=== PATIENT | male | born 1945 | race Caucasian/White ===

== ENCOUNTER 2016-06-25 17:30 | Emergency (ER) | payer MEDICARE ==
--- NOTE | 2016-07-01 15:06 | ER ---
ADMIT: 06/25/2016 RM/LOC: [facility] MR#: [id number] [address] [address] ROSARIO SANTAMARIA [address] [place] [address] Emergency Room Report SEX: M AGE: 70 : 1945 DATE: 06/25/2016 TIME: 1730 Please refer to my T-sheet for complete H and P. HISTORY OF PRESENT ILLNESS: Briefly, the patient is a 70-year-old who comes in with unsteady gait, shaky. He has a history of liver cirrhosis. He is on lactulose and has stayed steady on that, but he said he has had one round of severe hepatic encephalopathy and his caregiver states that this is kind of how he started. PHYSICAL EXAMINATION: VITAL SIGNS: Blood pressure 125/79, pulse 72, respirations 16, temp 97.7, saturating 100%. GENERAL: No acute distress. HEENT: Sclerae icteric. LUNGS: Clear. HEART: Regular. ABDOMEN: Soft. SKIN: No rash. EXTREMITIES: 2+ edema. EMERGENCY DEPARTMENT COURSE: CBC was normal except white count 3.8, hemoglobin 12.2, platelets 60. Chemistries normal except sodium 128, glucose 102, total bilirubin is 3.5. Ammonia 33. I gave him 500 mL bolus, lactulose 30 p.o., he was ready for discharge. I had a long discussion with him. ASSESSMENT: 1. Liver cirrhosis. 2. 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 Concerned that he could be going into encephalopathy again is the concern of the family. PLAN: I am going to bump his lactulose to 45 mL 3-4 times a day. He is on 30 mL q.i.d. [facility] Return if worse. Continue medications. Hernan Mera MD/ elsy JOB #: [id number] CC: Lamin Miller MD, Attending Physician Jeff Trevino MD, Family Physician
[2016-08-23] MEDS ORDERED: XIFAXAN550 MG PO (17:39)
[2016-08-23] MEDS ORDERED: SYNTHROID DPS0.05 MG PO (17:39)
[2016-08-23] MEDS ORDERED: ENULOSE10 GM/15 M PO (17:39)
[2016-08-23] MEDS ORDERED: LASIX DPS40 MG PO (17:40)
[2016-08-23] MEDS ORDERED: VITAMIN D31000 UNIT PO (17:40)
[2016-08-23] MEDS ORDERED: VITAMIN C500 M1 PO (17:40)
[2016-08-23] MEDS ORDERED: FLOMAX DPS0.4 MG PO (17:41)
[2016-08-23] MEDS ORDERED: VITAMIN A10000 UNI1 PO (17:41)
[2016-08-23] MEDS ORDERED: ALDACTONE100 MG PO (17:41)
[2016-08-23] MEDS ORDERED: PRILOSEC DPS20 MG PO (17:42)
[2016-08-29] MEDS ORDERED: XIFAXAN550 MG PO (16:27)
[2016-08-29] MEDS ORDERED: ENULOSE10 GM/15 M PO (16:27)
[2016-08-29] MEDS ORDERED: LASIX DPS40 MG PO (16:27)
[2016-08-29] MEDS ORDERED: SYNTHROID DPS0.05 MG PO (16:27)
[2016-08-29] MEDS ORDERED: ASCORBIC ACID500 MG PO (16:28)
[2016-08-29] MEDS ORDERED: ALDACTONE100 MG PO (16:28)
[2016-08-29] MEDS ORDERED: VITAMIN D31000 UNIT PO (16:28)
[2016-08-29] MEDS ORDERED: PRILOSEC DPS20 MG PO (16:29)
[2016-08-29] MEDS ORDERED: VITAMIN A10000 UNI1 PO (16:29)
[2016-08-29] MEDS ORDERED: FLOMAX DPS0.4 MG PO (16:29)
== END 2016-06-25 19:38 | disposition home or self-care (01) ==
LOC: ER 17:30
DX: K74.60 Unspecified cirrhosis of liver (principal); R25.1 Tremor, unspecified

== ENCOUNTER → 2016-08-15 | Outpatient (CLI) | payer MEDICARE, OTHER ==
[~2016-08-15] MED LIST: ALDACTONE100 MG PO; ASCORBIC ACID500 MG PO; ENULOSE10 GM/15 M PO; FLOMAX DPS0.4 MG PO; LASIX DPS40 MG PO; PRILOSEC DPS20 MG PO; SYNTHROID DPS0.05 MG PO; VITAMIN A10000 UNI1 PO; VITAMIN C500 M1 PO; VITAMIN D31000 UNIT PO; XIFAXAN550 MG PO
== END | disposition home or self-care (01) ==
DX: K72.10 Chronic hepatic failure without coma (principal)

== ENCOUNTER 2016-08-20 15:26 | Inpatient (IN) | payer MEDICARE, OTHER ==
[~2016-08-20] VITALS: Ht 175.3 cm; Wt 76.9 kg
--- NOTE | ~2016-08-20 | FD ---
ADMIT: 08/20/2016 RM/LOC: 402 [facility] MR#: [id number] [address] [address] ROSARIO [place] [address] Final Diagnosis SEX: M AGE: 71 : 1945 ADMISSION DATE: 08/20/2016 DISCHARGE DATE: 08/22/2016 DISCHARGE DIAGNOSES: 1. Hepatic encephalopathy, mild, resolved. 2. Alcohol end-stage/alcoholic liver disease/cirrhosis with known portal hypertension, ascites and known esophageal varices. 3. Chronic hyponatremia. 4. History of alcohol abuse, in remission. 5. Depression. 6. BPH (benign prostatic hypertrophy). 7. Hypothyroidism. Jeff Trevino MD/ vdg JOB #: [id number] CC: Jeff Trevino MD, Attending Physician Jeff Trevino MD, Family Physician
--- NOTE | ~2016-08-20 | ER ---
ADMIT: 08/20/2016 RM/LOC: 402 [facility] MR#: [id number] [address] [address] ROSARIO [place]ANT[place] [address] Emergency Room Report SEX: M AGE: 71 : 1945 DATE: 08/20/2016 ADDENDUM: This is a 71-year-old white male with end-stage cirrhosis coming in with confusion. He has obvious hepatic encephalopathy which he has had before. He is confused with this. He is not on the transplant list. He is only getting progressively worse. He lives by himself. His sister tries help to him, but she is not [id number], and he has no advanced directive at this time. His ammonia is 67. CBC shows a white count of 4, hemoglobin 12, bilirubin total is 3.2. His SGOT is 46, SGPT is 52. He does have ascites as well. At this time, I spoke with Dr. Trevino. He will admit. CONDITION ON DISCHARGE: Serious. Lamin Miller MD/ modl JOB #: [id number] CC: Jeff Trevino MD, Attending Physician Jeff Trevino MD, Family Physician
[2016-08-23] MEDS ORDERED: SYNTHROID DPS0.05 MG PO (17:39)
[2016-08-23] MEDS ORDERED: XIFAXAN550 MG PO (17:39)
[2016-08-23] MEDS ORDERED: ENULOSE10 GM/15 M PO (17:39)
[2016-08-23] MEDS ORDERED: VITAMIN C500 M1 PO (17:40)
[2016-08-23] MEDS ORDERED: VITAMIN D31000 UNIT PO (17:40)
[2016-08-23] MEDS ORDERED: LASIX DPS40 MG PO (17:40)
[2016-08-23] MEDS ORDERED: FLOMAX DPS0.4 MG PO (17:41)
[2016-08-23] MEDS ORDERED: VITAMIN A10000 UNI1 PO (17:41)
[2016-08-23] MEDS ORDERED: ALDACTONE100 MG PO (17:41)
[2016-08-23] MEDS ORDERED: PRILOSEC DPS20 MG PO (17:42)
--- NOTE | 2016-08-26 12:33 | HP ---
ADMIT: 08/20/2016 RM/LOC: 402 [facility] MR#: [id number] [address] [address] ROSALIO ROSARIO Eugenia [place] [address] History and Physical SEX: M AGE: 71 : 1945 DATE OF SERVICE: HISTORY OF PRESENT ILLNESS: The patient is a very pleasant, 71-year-old gentleman with past medical history of end-stage liver disease secondary to alcoholism with cirrhosis, portal hypertension, ascites, known varices, presents to [facility] emergency room today with his sister who brings him in just saying he has been a little bit more confused the last 24-48 hours, balance has been off, did not know his day this morning. Has been hospitalized last April 2016 for an episode of hepatic encephalopathy. At that point, he had not been taking his lactulose correctly. He was started on rifaximin and done pretty well until recently. Sister admits he has not even been taking it three times per day and bowels have only been moving once per day. The patient, in talking with him, is awake, a little alert, but confused at times. He denies fevers, chills, or any abdominal pain. Denies cough. Denies any bladder complaints. No pain. He has been a little out of balance, had a fall a couple of weeks ago with really no injuries in the emergency room. As mentioned, he was noted to be confused and he is admitted for further evaluation and treatment. PAST MEDICAL HISTORY: Includes: 1. Cirrhosis of the liver secondary to alcoholic liver disease with known esophageal varices, portal hypertension, ascites, prior history of hepatic encephalopathy with admissions in [place] in April 2016. 2. History of alcohol abuse, in remission. 3. Hypothyroidism. 4. History of colon polyps. 5. Status post root canal. 6. Depression. 7. Presbycusis. 8. BPH. HOME MEDICATIONS: Include: 1. Lactulose. 2. Rifaximin. 3. Synthroid. 4. Lasix. 5. Aldactone. 6. Tamsulosin. 7. Vitamin D. 8. Vitamin C. 9. Vitamin A. 10.Omeprazole. ALLERGIES: NO KNOWN MEDICAL ALLERGIES. SOCIAL HISTORY: He is not . Prior heavy drinker. He has never been a smoker. He has been living by himself with just some assistance from his sister. ADMIT: 08/20/2016 RM/LOC: 402 [facility] MR#: [id number] [address] [address] ROSARIO SANTAMARIA [address] [place] [id number] History and Physical SEX: M AGE: 71 : 1945 FAMILY HISTORY: Mother with heart disease, heart failure, and heart block. Father with a type of sarcoma and AFib. REVIEW OF SYSTEMS: As noted above. All systems reviewed and negative. PHYSICAL EXAMINATION: VITAL SIGNS: 97.2, 76, 14, 115/78, 100% on room air. GENERAL: This is a gentleman, appears older than his stated age. He is in no apparent distress. He is awake, confused at times. He is oriented to person and place. He is not able to tell me the year or the date. HEENT: Normocephalic and atraumatic. Mucous membranes are little dry. NECK: Supple. He does have some mild scleral icterus. HEART: Regular. LUNGS: Clear. ABDOMEN: Slight fluid wave is noted, not obviously distended. Positive bowel sounds are noted throughout. He does not have any rebound or guarding noted. EXTREMITIES: He has trace to 1+ edema, feet, ankle, calves. NEUROLOGICAL: He does have a little bit of asterixis noted. Otherwise, I do not cook pickled meat any other focal deficits. He has good weights and measures inspector strengths bilaterally. His gait was observed with him walking the bathroom and he was unsteady with kind of a broad-based gait. LABORATORY DATA: Lab work shows hemoglobin 12.1, white count is 4, 54,000 platelets. Sodium 130, potassium 4.5, BUN is 16 with a creatinine of 1.2. His AST 46, ALT 52, alkaline phosphatase 121, total bilirubin 3.2. Urinalysis is pending. Ammonia was 67. ASSESSMENT AND PLAN: 1. Encephalopathy, likely recurrence of his hepatic encephalopathy due to medication noncompliance. 2. End-stage liver disease secondary to alcohol abuse with known history of portal hypertension/ascites with no known esophageal varices. 3. Chronic thrombocytopenia. 4. Chronic hyponatremia. 5. Hypothyroidism. At this time, I am going to check a urine on him. I do not see any other obvious infectious symptoms going on. I do not see any other evidence of ADMIT: 08/20/2016 RM/LOC: 402 [facility] MR#: [id number] [address] [place] [phone] ROSARIO SANTAMARIA [address] [place] [address] History and Physical SEX: M AGE: 71 : 1945 decompensation right now besides his ascites and hepatic encephalopathy. We are going to schedule lactulose at least five times per day. PT/OT and Social Work to see them. We will follow up lab and urine on him tomorrow. His hyponatremia is overall stable. We will continue with the Lasix and the Aldactone. Place him on a 2 g sodium diet with 2 L of fluid restriction. We will plan on daily weights. At this point, I just do not think he is safe at home. This is his second hospitalization just since April just because he has not been taking his medications correctly. He still remains sober and did actually have a screening alcohol screen done last week, so I do not think that is behind anything right now. No obvious illicit drugs are noted, but we will get Social Work involved as I do think he will probably need placement. We will follow him closely here as inpatient. Jeff Trevino MD/ elsy JOB #: [id number] CC: Jeff Trevino, Attending Physician Jeff Trevino, Family Physician
--- NOTE | 2016-08-27 10:35 | ER ---
ADMIT: 08/20/2016 RM/LOC: 402 [facility] MR#: [id number] 26[address] [facility] [address] ROSARIO SANTAM[place] [address] Emergency Room Report SEX: M AGE: 71 : 1945 DATE: 08/20/2016 Sister finally felt that she could not take care of him at home, so we are going back to being admitted by Dr. Trevino. Lamin Miller MD/ elsy JOB #: [id number] CC: Jeff Trevino MD, Attending Physician Jeff Trevino MD, Family Physician
--- NOTE | 2016-08-27 10:35 | ER ---
ADMIT: 08/20/2016 RM/LOC: 402 [facility] MR#: [id number] [address] [address] ROSARIO [place] [address] Emergency Room Report SEX: M AGE: 71 : 1945 DATE: 08/20/2016 ADDENDUM: A 71-year-old white male coming in with hepatic encephalopathy, confusion. Sister feels like she can try him at home because she can at least get him up and around. She has help at home. I notified Dr. Trevino again as well, so she will take him home. CONDITION ON DISCHARGE: Still serious, but stable. Lamin Miller MD/ irwinl JOB #: [id number] CC: Jeff Trevino MD, Attending Physician Jeff Trevino MD, Family Physician
[2016-08-29] MEDS ORDERED: ENULOSE10 GM/15 M PO (16:27)
[2016-08-29] MEDS ORDERED: XIFAXAN550 MG PO (16:27)
[2016-08-29] MEDS ORDERED: SYNTHROID DPS0.05 MG PO (16:27)
[2016-08-29] MEDS ORDERED: LASIX DPS40 MG PO (16:27)
[2016-08-29] MEDS ORDERED: ALDACTONE100 MG PO (16:28)
[2016-08-29] MEDS ORDERED: ASCORBIC ACID500 MG PO (16:28)
[2016-08-29] MEDS ORDERED: VITAMIN D31000 UNIT PO (16:28)
[2016-08-29] MEDS ORDERED: PRILOSEC DPS20 MG PO (16:29)
[2016-08-29] MEDS ORDERED: FLOMAX DPS0.4 MG PO (16:29)
[2016-08-29] MEDS ORDERED: VITAMIN A10000 UNI1 PO (16:29)
== END 2016-08-22 13:41 | disposition home or self-care (01) | DRG 442 ==
LOC: ER 15:26 → 4PCU 17:45
PROVIDERS: ADMIT Internal Medicine
DX: K72.90 Hepatic failure, unspecified without coma (principal); E87.1 Hypo-osmolality and hyponatremia; I85.10 Secondary esophageal varices without bleeding; K76.6 Portal hypertension; K70.31 Alcoholic cirrhosis of liver with ascites; D69.6 Thrombocytopenia, unspecified; F10.21 Alcohol dependence, in remission; E03.9 Hypothyroidism, unspecified; F32.9 Major depressive disorder, single episode, unspecified; N40.0 Benign prostatic hyperplasia without lower urinary tract symptoms; H91.10 Presbycusis, unspecified ear; Z91.14 Patient's other noncompliance with medication regimen; Z86.010 Personal history of colon polyps

== ENCOUNTER 2016-08-26 16:15 | Observation (INO) | payer MEDICARE, OTHER ==
[~2016-08-26] VITALS: Ht 175.3 cm; Wt 75.6 kg
--- NOTE | ~2016-08-26 | FD ---
ADMIT: 08/26/2016 RM/LOC: 520 [facility] MR#: [id number] [address] [address] ROSARIO SANTAMARIA [place] [place] [address] Final Diagnosis SEX: M AGE: 71 : 1945 ADMISSION DATE: 08/26/2016 DISCHARGE DATE: 08/28/2016 DISCHARGE DIAGNOSES: 1. Hepatic encephalopathy, mild, resolving. 2. Alcoholic liver disease/cirrhosis. 3. Hypothyroidism. 4. Restless legs. 5. Gastroesophageal reflux disease. 6. Cognitive decline. Jeff Trevino MD/ kendallf JOB #: [id number] CC: Jeff Trevino MD, Attending Physician Jeff Trevino MD, Family Physician
[~2016-08-26 16:15] MED LIST changes: -ASCORBIC ACID500 MG PO
--- NOTE | 2016-08-27 10:36 | ER ---
ADMIT: 08/26/2016 RM/LOC: [facility] MR#: [id number] [address] [address] ROSALIO ROSARIO Eugenia [place] [address] Emergency Room Report SEX: M AGE: 71 : 1945 DATE: 08/26/2016 ADDENDUM: A 71-year-old white male whom we have seen several times here. He has cirrhosis of the liver secondary to alcoholic liver disease with known esophageal varices, portal hypertension, ascites, hepatic encephalopathy recurrently, as well as he is not on the transplant list. Family has been struggling with this. I did speak with them and him fairly to the point to this time. We are going to admit as an observation with the idea of placement and/or Home Health. I spoke with Dr. Trevino about this. CONDITION ON DISCHARGE: Serious but stable at this time. Lamin Miller MD/ elsy JOB #: [id number] CC: Lamin Miller MD, Attending Physician
--- NOTE | 2016-08-28 14:52 | CO ---
ADMIT: 08/26/2016 RM/LOC: 520 [facility] MR#: [id number] [address] [facility] [address] [place] [address] ROSARIO SANTAMARIA [address] [place] [address] Consultation SEX: M AGE: 71 : 1945 DATE OF CONSULTATION: 08/27/2016 ATTENDING PHYSICIAN: Jeff Trevino CONSULTING PHYSICIAN: Zhanna Teresa APRN TIME IN: 1100 hours. TIME-OUT: 1135 hours. REASON FOR CONSULTATION: Supportive care consultation was requested by Dr. Trevino for discussion of goals for care. HISTORY PRESENT ILLNESS: Mr. Santamaria is a 71-year-old, male with history of end-stage liver disease secondary to alcoholic cirrhosis. He also has a history of portal hypertension with varices and ascites. He was recently admitted August 20 to August 22 with hepatic encephalopathy. He discharged home, however, was readmitted again on August 26 with increasing confusion. At this point, he is needing 24-hour care. The plan is for him to discharge later today with his sisters at home to provide 24-hour care. Due to his complexities, supportive care consultation was requested to discuss goals for care. In terms of advanced directives, the patient does not have any on file. He is a full code status. In discussion with the family, he has a daughter. However, he is estranged from her. Next of kin would be his siblings, and I do have contact information for his sister Clari Santamaria, whose phone number is [phone] and [phone]. As mentioned, I do not see a living will or POLST form on file. Symptomatically, the patient does have mild confusion secondary to encephalopathy. He is weak and debilitated. He denies pain or shortness of breath. PAST MEDICAL HISTORY: Cirrhosis of the liver secondary to alcoholic liver disease, esophageal varices, portal hypertension, ascites, alcohol abuse in the past, hypothyroidism, history of colon polyps, history of root canal, depression, presbycusis, and BPH. ALLERGIES: THE PATIENT HAS NO KNOWN MEDICATION ALLERGIES. CURRENT MEDICATIONS: Please see the patient's MAR for specific routes and dosages. His current medications are as follows: 1. Lasix. 2. Spironolactone. 3. Protonix. 4. Synthroid. 5. Rifaximin. 6. Lactulose. ADMIT: 08/26/2016 RM/LOC: 520 [facility] MR#: [id number] [address] [address] ROSARIO SANTAMARIA [facility] [place] [address] Consultation SEX: M AGE: 71 : 1945 7. Flomax. 8. Maalox. 9. Tylenol. 10.Colace. 11.Nitrostat. SOCIAL HISTORY: The patient is not . As mentioned, he has a daughter but he is not in contact with her. He is a prior heavy drinker. He has never used tobacco. FAMILY HISTORY: His mom had heart disease, heart failure, and heart block. He had father with a type of sarcoma and atrial fibrillation. FUNCTIONAL REVIEW: Prior to his hospital stay, it sounds like things were not really going all that well at home. It sounds like he could get around, but was needing some assistance with ADLs. He has some confusion. His palliative performance scale prior to admission was around 50% to 60%. Currently, he is mostly in bed. He is requiring mainly considerable assistance with ADLs. He is little confused. His current palliative performance scale is 40% to 50%. REVIEW OF SYSTEMS: A 10-point review of systems was completed and other than those pertinent positives and negatives mentioned in the HPI. It is negative although mildly limited due to his mild confusion. PHYSICAL EXAMINATION: GENERAL: The patient is examined in the bed. He is in no acute distress. VITAL SIGNS: Temperature 97.7, pulse 72, respirations 16, blood pressure 97/55, oxygen 96% on room air. HEENT. Head is normocephalic. Sclerae icteric. Oral mucosa pink and moist with poor dentition. NECK: Supple. RESPIRATORY: Respirations are equal, nonlabored at rest. LUNGS: Diminished in the bases bilaterally. CARDIOVASCULAR: Rate and rhythm regular without murmurs, rubs, or gallops. GASTROINTESTINAL: Distended. Bowel sounds are positive. MUSCULOSKELETAL: Generalized weakness. INTEGUMENTARY: Skin turgor is fair. NEUROLOGIC: Oriented to place and time but mildly confused regarding details of why he is here and things have been going on. PSYCHIATRIC: Calm and cooperative. DIAGNOSTIC DATA: Sodium 125, potassium 4.2, BUN 14, creatinine 1.1, total protein 5.8, albumin 2.8. WBCs 4.4, hemoglobin 12.3, hematocrit 33.2, and platelets are 62. IMPRESSION: 1. Physical debility. 2. Hepatic encephalopathy. ADMIT: 08/26/2016 RM/LOC: 520 [facility] MR#: [id number] [facility] [address] [address] ROSARIO SANTAMARIA [address] [place] [address] Consultation SEX: M AGE: 71 : 1945 3. Fatigue. 4. Malaise. 5. Moderate protein calorie malnutrition. 6. End-stage liver disease. 7. Portal hypertension. 8. Varices. 9. Palliative care. 10.The patient is a full code. PLAN OF TREATMENT: 1. At the time of assessment, the patient is fatigued and mildly confused. Therefore, I did meet with his next of kin who is his sister Clari as well as his mother sister and another family member outside the patient's room. We reviewed his overall status and goals for the time ahead. They state that the patient is hopeful for transplant. She states that he would be a transplant candidate if he can get the dental work done that he needs to. I asked when they follow up with [facility] next, and she says that this is in October. The patient's sister does seem to identify that getting a transplant may not be a very realistic option for him. However, she states that she wants the patient to be able to make decisions regarding his care in the time ahead. At this time, I am very clear with her that due to his confusion, he is unable to make medical decisions. We will rely on her, and the sibling's for assistance with goals. I did discuss hospice philosophy and they are not ready for this at this point as this will take him off the transplant list and make it where he is not at potential to get transplant. At this point, the plan is to go back home later today with the patient's sister who is providing 24-hour care. If he is here tomorrow, I will of course follow up with him, and the family to further discuss goals. 2. I did review code status with the patient's sister as she states that the patient directed a full code upon admission. However, she is not sure he understands the full implications of this. As mentioned, he is confused. Therefore, I do not feel he participate in this discussion at present. With my limited time with the patient as he is getting ready to discharge later today, I did give the family members handouts on CPR and ventilator assistance for the patient to review should his cognition improved after discharge. I am very clear with them that the burden of resuscitation may outweigh the benefit given his overall debility and they verbalized understanding of this. ADMIT: 08/26/2016 RM/LOC: 520 [facility] MR#: [id number] [address] [place] [address] ROSARIO SANTAMARIA [address] [place] [address] Consultation SEX: M AGE: 71 : 1945 3. In terms of advanced directives, he does not have any on file that they are aware of. They are trying to get in contact with the patient's daughter, but this relationship is currently not established. At this point, it does seem to be that the patient's siblings are the next of kin medical decision makers. If he were to clear, I did recommend completion of advanced directives, and they are hopeful that this can be done as well. We would like to thank Dr. Trevino for the invitation to participate in this patient's care. Total consultation time was 35 minutes from 1100 hours to 1135 hours with 20 minutes from 1105 hours to 1125 hours spent [id number] with the patient and family discussing goals for care and providing counseling and support. Zhanna Teresa APRN/ elsy JOB #: [id number] CC: Jeff Trevino, Attending Physician Jeff Trevino, Family Physician
[2016-08-29] MEDS ORDERED: LASIX DPS40 MG PO (16:27)
[2016-08-29] MEDS ORDERED: ENULOSE10 GM/15 M PO (16:27)
[2016-08-29] MEDS ORDERED: XIFAXAN550 MG PO (16:27)
[2016-08-29] MEDS ORDERED: SYNTHROID DPS0.05 MG PO (16:27)
[2016-08-29] MEDS ORDERED: ASCORBIC ACID500 MG PO (16:28)
[2016-08-29] MEDS ORDERED: VITAMIN D31000 UNIT PO (16:28)
[2016-08-29] MEDS ORDERED: ALDACTONE100 MG PO (16:28)
[2016-08-29] MEDS ORDERED: FLOMAX DPS0.4 MG PO (16:29)
[2016-08-29] MEDS ORDERED: VITAMIN A10000 UNI1 PO (16:29)
[2016-08-29] MEDS ORDERED: PRILOSEC DPS20 MG PO (16:29)
--- NOTE | 2016-08-31 17:04 | HP ---
ADMIT: 08/26/2016 RM/LOC: 520 [facility] MR#: [id number] [address] [address] ROSALIOKEILYROSARIO [place] [address] History and Physical SEX: M AGE: 71 : 1945 DATE OF SERVICE: CHIEF COMPLAINT: Confusion. HISTORY OF PRESENT ILLNESS: The patient is a 71-year-old gentleman who has a past medical history of end-stage liver disease secondary to alcohol with history of epileptic encephalopathy who presents to [facility] emergency room with his family today as they had complaints that he has not been back to his normal self. He had a recent hospitalization from August 20 to August 22 with hepatic encephalopathy. The family notes that he did well a couple days after discharge. Then slowly, just weaker, was not having bowel movements as normal, was unsteady on his feet, was not eating, and they were unsure of his he was emptying his bladder. He was brought into the emergency room, and just found to be slightly confused and weak and he is admitted for observation this morning. The patient denies any chest pain or shortness of breath. Denies any abdominal pain, nausea, or vomiting. No fevers or chills have been noted. The patient believes he has been taking his medications with his sister's assistance. For past medical history, social history, family history, please see previously dictated H and P and discharge summary. HOME MEDICATIONS: 1. Lactulose. 2. Rifaximin. 3. Synthroid. 4. Lasix. 5. Vitamin C. 6. Vitamin D. 7. Aldactone. 8. Tamsulosin. 9. Vitamin A. 10.Omeprazole. REVIEW OF SYSTEMS: As noted above. All systems are reviewed and negative. PHYSICAL EXAMINATION: VITAL SIGNS: 97.7, 72, 16, 97/55, 96% on room air. GENERAL: This is a gentleman, appears older than his stated age. He is in no apparent distress. He is awake he is alert. He is able to tell me the date and the place, but is not able to tell me the day of the week. HEENT: Normocephalic and atraumatic. Mucous membranes are dry. NECK: Supple. LUNGS: Clear. HEART: Regular. ABDOMEN: Soft, nontender, and nondistended. Question, small fluid wave. EXTREMITIES: He has trace edema. NEUROLOGIC: His cranial nerves are intact. I am not picking up any obvious focal deficits. He does have a little bit of a slight flapping tremor noted on extension of wrist with arm extension. ADMIT: 08/26/2016 RM/LOC: 520 [facility] MR#: [id number] [address] [address] ROSARIO SANTAMARIA [address] [place] [address] History and Physical SEX: M AGE: 71 : 1945 LABORATORY AND X-RAY: Lab work shows a hemoglobin of 12.3, white count 4.4, [address] platelets. Sodium 125, potassium 4.5, BUN is 14 with a creatinine of 1.1. Calcium is 8.2. His urinalysis was within normal limits. Ammonia level was 33. ASSESSMENT AND PLAN: 1. Confusion and weakness likely mild hepatic encephalopathy and overall debility secondary to his end-stage liver disease. 2. Chronic hyponatremia. 3. History of liver disease secondary to alcohol. 4. Benign Prostatic Hyperplasia. 5. History of esophageal varices. 6. Depression. 7. Hypothyroidism. At this point, overall, the patient seems is doing better per the family, and I agree he is to. I am just really concerned about him being at home. I really think he needs 24-hour care. At this point, we are going to see what social work assistance we can get them, although his sister state they could stay with him 24 hours a day. I do believe that is a large undertaking and also think they need to try to get guardianship or power of commonwealth attorney for him based on the fact that as we move forward, he is not going to be able to make all of his own decisions. We will make sure he is getting the lactulose frequently. We will do some postvoid residuals with his BPH make sure he is emptying his bladder. His creatinine is just fine today, and we will keep him for observation. Jeff Trevino MD/ elsy JOB #: [id number] CC: Jeff Trevino, Attending Physician Jeff Trevino, Family Physician
== END 2016-08-28 09:40 | disposition home or self-care (01) ==
LOC: ER 16:15 → 5MS 18:15
PROVIDERS: ADMIT Internal Medicine
DX: K72.90 Hepatic failure, unspecified without coma (principal); K70.30 Alcoholic cirrhosis of liver without ascites; E03.9 Hypothyroidism, unspecified; G25.81 Restless legs syndrome; K21.9 Gastro-esophageal reflux disease without esophagitis; R41.81 Age-related cognitive decline; E87.1 Hypo-osmolality and hyponatremia; N40.0 Benign prostatic hyperplasia without lower urinary tract symptoms; F32.9 Major depressive disorder, single episode, unspecified; Z79.899 Other long term (current) drug therapy